=== PATIENT | female | born 1960 | race Caucasian/White ===

== ENCOUNTER → 2024-12-19 11:09 | Outpatient (REF) | payer MEDICARE, OTHER, SELFPAY | LOC: RAD 11:09 | PROVIDERS: ATTENDING PHYSICIAN Family Medicine | DX: R07.89 Other chest pain (principal); Z85.3 Personal history of malignant neoplasm of breast; Z90.13 Acquired absence of bilateral breasts and nipples | CPT/HCPCS: 71046 ==